=== PATIENT | male | born 1935 | race African-American/Black ===

== ENCOUNTER 2016-03-01 14:14 | Emergency (ER) | payer OTHER, MEDICARE ==
[~2016-03-01] VITALS: Ht 165.1 cm; Wt 65.8 kg
[~2016-03-01 14:14] MED LIST: ALBUTEROL 3 ML3 ML INH; CALCIUM CARBONATE PO; HYDRALAZINE100 MG PO; LOSARTAN POTAS100 MG PO; NEPHROCAPS1 TAB PO; PARICALCITOL IV; PREDNISONE10 MG PO; VENTOLIN H0.09 MG/Ac IH
[2016-03-01 14:22] VITALS: BP 193/90
--- NOTE | 2016-03-01 14:42 | ED DYSPNEA/ASTHMA COMPLAINT ---
History of Present Illness General Chief Complaint: Wheezing/Asthma Stated Complaint: ASTHMA ATTACK Source: patient, family Exam Limitations: no limitations Reconcile Medications Azithromycin 250 MG TABLET 1 TAB PO DAILY LUNGS Azithromycin 250 MG TABLET 1 DP PO DAILY LUNGS RECEIVED 500MG(DAY 1) IN THE ED Hydralazine Hydrochloride (Hydralazine) 100 MG TAB 1 TAB PO TID HTN (Reported ) Losartan Potassium 100 MG TABLET 1 TAB PO DAILY HTN (Reported) Nephro-Vitamins (Nephro-Brittany Tablet) 0.8 MG TABLET 1 TAB PO DAILY SUPPLEMENT (Reported) Prednisone 10 MG TABLET 4 TAB PO DAILY ASTHMA/BRONCHITIS Prednisone 10 MG TABLET 4 TAB PO DAILY ASTHMA/BRONCHITIS Triage Note: RECEIVED 80 YO MALE WITH HX OF ASTHMA C/O WHEEZING AND DIFFICULTY BREATHING, STARTED LAST NIGHT. INSP AND EXP WHEEZES ALL CURRAN. O2 SATS 93% USES MED NEB MACHINE AT HOME WITH NO IMPROVEMENT. MOIST COUGH. Triage Nurses Notes Reviewed? yes HPI: Patient is a 80-year-old male presents complaining of wheezing and dyspnea. Wheezing and dyspnea onset yesterday. Patient reports he began with head congestion approximately 2-3 days ago and then wheezing dyspnea onset yesterday. Cough with clear sputum production. Patient used his nebulizer machine without improvement. Symptoms are currently moderate. Patient denies chest pain, fevers, chills. (STANTON WARNER,LUPILLO) Vital Signs & Intake/Output Vital Signs & Intake/Output Vital Signs Date Time Temp Pulse Resp B/P Pulse O2 O2 Flow FiO2 Ox Delivery Rate 03/01 1604 96 03/01 1454 98 03/01 1422 99.1 88 22 193/90 93 Room Air Allergies Coded Allergies: ROBSON Inhibitors (SWELLING 03/01/16) shellfish derived (SWELLING 03/01/16) strawberry (SWELLING 03/01/16) (GRANT DYE,TIERRA Goodwin) Past History Travel History Traveled to [place] past 21 day No Medical History Any Pertinent Medical History? 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 No (LUPILLO RAMOS) Review of Systems Review of Systems Constitutional: Denies: chills, fever. EENTM: Reports: nasal congestion. Respiratory: Reports: cough, short of breath, sputum production, wheezing. Cardiovascular: Denies: chest pain. GI: Denies: abdominal pain, nausea, vomiting. Genitourinary: Reports: no symptoms. Musculoskeletal: Reports: no symptoms. Skin: Reports: no symptoms. Neurological/Psychological: Reports: no symptoms. Denies: headache. Hematologic/Endocrine: Reports: no symptoms. Immunologic/Allergic: Reports: no symptoms. (LUPILLO RAMOS) Physical Exam Physical Exam General Appearance: alert, awake Head: atraumatic, normal appearance Eyes: Bilateral: normal appearance, PERRL, EOMI. Ears, Nose, Throat: normal pharynx, normal ENT inspection, hearing grossly normal Neck: normal inspection, supple, full range of motion Respiratory: moderate diffuse inspiratory and expiratory wheezing Cardiovascular: regular rate/rhythm Gastrointestinal: soft, non-tender Extremities: normal inspection, normal capillary refill, normal range of motion Neurologic/Psych: awake, alert, oriented x 3, normal gait, normal mood/affect Skin: warm/dry Lymphatic: no anterior cervical lisset Core Measures ACS in differential dx? No Severe Sepsis Present: No Septic Shock Present: No (LUPILLO RAMOS) Progress Differential Diagnosis: asthma, bronchitis, COPD, pneumonia Diagnostic Imaging: Viewed by Me: Radiology Read. Discussed w/RAD: Radiology Read. CXR Impression: PATIENT: LUCY WEAVER PRESENT AGE: 80 PATIENT ACCOUNT NO: [id number] : 37 LOCATION: [facility] ORDERING PHYSICIAN: LUPILLO WARNER SERVICE DATE: 03/01/160119 EXAM TYPE: RAD - XRY-CHEST XRAY, PA AND LATERAL EXAMINATION: XR CHEST CLINICAL INFORMATION: Cough and dyspnea COMPARISON: 06/04/2015 chest x-ray TECHNIQUE: PA and lateral views of the chest were obtained. FINDINGS: Normal cardiomediastinal silhouette and pulmonary vascularity. Atherosclerotic calcifications of aortic arch seen. There is increased interstitial markings in the right infrahilar lung, can represent pneumonia. No pleural effusions or pneumothorax. IMPRESSION: Increased right infrahilar interstitial markings, can represent right lower lobe pneumonia. Clinical correlation is suggested. DICTATED BY: SAMSON ROCK MD DATE/TIME DICTATED:03/01/161516 AUTOMOBILE PARTS ASSEMBLER:TONA DATE/TIME TRANSCRIBED:1516 CONFIDENTIAL, DO NOT COPY WITHOUT APPROPRIATE AUTHORIZATION. < Electronically signed in Other Vendor System> SIGNED BY: SAMSON ROCK MD 03/01/16 1523 Initial ED EKG: none (LUPILLO RAMOS) Plan of Care: Current Medications Sig/Jerilyn Start time Last Medication Dose Stop Time Status Admin Azithromycin 500 MG ONCE ONE 03/01 1630 AC (Zithromax) 03/01 163 Discussed with and seen by Dr. Rivera 1545: Patient reports feeling moderate improvement after nebulizer treatment. Lungs re-examined, continues with moderate diffuse wheezing. Additional nebulizer treatment ordered. Patient afebrile, nontoxic appearing, suspect asthma/COPD rather than pneumonia. This was discussed with the patient and his family. Patient has dialysis tomorrow, where he will be monitored by medical staff. Will start patient on corticosteroids and antibiotics, have him follow up tomorrow with dialysis and return to the ER if any worsening. 1620: Patient reports improvement after second nebulizer treatment. Patient nontoxic appearing, appears stable for discharge. (LUPILLO RAMOS) Departure Departure Time of Disposition: 1622 Disposition: HOME OR SELF CARE Condition: Stable Clinical Impression Primary Impression: Bronchitis Secondary Impressions: Asthma exacerbation Referrals: DEBRA DYE,CHIKI Johnson (PCP/Family) Additional Instructions: Follow up with dialysis tomorrow as scheduled. Use your nebulizer machine every 4-6 hours. Return to the ER if breathing worsening, temperature 100.3 or higher or worsening of symptoms. Departure Forms: Customer Survey General Discharge Information Prescriptions: Current Visit Scripts Azithromycin 1 TAB PO DAILY #4 TAB Prednisone 4 TAB PO DAILY #12 TAB Azithromycin 1 DP PO DAILY #4 TAB RECEIVED 500MG(DAY 1) IN THE ED Prednisone 4 TAB PO DAILY #12 TAB (LUPILLO RAMOS) PA/FUR DRESSING SUPERVISOR Co-Sign Statement Statement: ED Attending supervision documentation- [x] I saw and evaluated the patient. I have also reviewed all the pertinent lab results and diagnostic results. I agree with the findings and the plan of care as documented in the PA's/FUR DRESSING SUPERVISOR's documentation. [] I have reviewed the ED Record and agree with the PA's/FUR DRESSING SUPERVISOR's documentation. [] Additions or exceptions (if any) to the PAs/FUR DRESSING SUPERVISOR's note and plan are summarized below: [] (GRANT DYE,TIERRA Goodwin) Critical Care Note Critical Care Note Critical Care Time: non-applicable (STANTON WARNER,LUPILLO)
--- NOTE | 2016-03-01 15:23 | RADIOLOGY REPORT ---
EXAMINATION: XR CHEST CLINICAL INFORMATION: Cough and dyspnea COMPARISON: 06/04/2015 chest x-ray TECHNIQUE: PA and lateral views of the chest were obtained. FINDINGS: Normal cardiomediastinal silhouette and pulmonary vascularity. Atherosclerotic calcifications of aortic arch seen. There is increased interstitial markings in the right infrahilar lung, can represent pneumonia. No pleural effusions or pneumothorax. IMPRESSION: Increased right infrahilar interstitial markings, can represent right lower lobe pneumonia. Clinical correlation is suggested.
[2016-03-01] MEDS ORDERED: AZITHROMYCIN250 M1 PO ×2 (16:23→16:57)
[2016-03-01] MEDS ORDERED: PREDNISONE10 M2 PO ×2 (16:23→16:57)
== END 2016-03-01 16:58 ==
LOC: ERH 14:14
DX: J45.901 Unspecified asthma with (acute) exacerbation (principal)
CPT/HCPCS: 1263

== ENCOUNTER → 2016-05-19 | Day surgery (SDC) | payer OTHER, MEDICARE ==
[~2016-05-19] MED LIST changes: +AZITHROMYCIN250 M1 PO; +PREDNISONE10 M2 PO
--- NOTE | 2016-05-19 15:16 | Operative Report ---
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 He was consented for cataract extraction and trabeculectomy of the left eye with mitomycin-C. Mitomycin was used in this case because the 2 procedures were being done concurrently. The patient was brought to the operating room and standard monitoring equipment was attached. The patient was prepped and draped in the usual fashion for sterile intraocular surgery. A lid speculum was used to retract the lids. The case was begun by making 2 partial-thickness corneal relaxing incisions at 177]. A small temporal incision was made with an I- knife and non-preserved lidocaine was introduced into the anterior chamber to provide anesthesia. The patient was asked to look down. Conjunctiva and Tenon's tissue was opened at the 12 o'clock position using non-toothed forceps and a Vannas scissors. A fornix based conjunctival peritomy was continued using Kvng's scissors. Additional anesthesia was achieved by infusing a 50:50 mixture of 2 percent lidocaine and 0.75 Marcaine which had been mixed previously underneath the conjunctiva and tenon's tissue. The sclera at the limbus was cleaned off using a 69 blade and a Weck-Nneka sponge. A partial thickness groove was made tangential to the limbus approximately 1.5 mm back using the same 69 blade. A crescent knife was used to tunnel from this incision into clear cornea and then the anterior chamber was entered with a 2.4 mm keratome. The anterior chamber was then filled and deepened with viscoelastic. A curvilinear capsulorrhexis was achieved using a 30-gauge needle and is a cystotome and capsulorrhexis was finished using a Utrata forceps. The lens was then hydrodissected with balanced salt solution and found to be rotatable. The lens was emulsified using phacoemulsification and a modified four-quadrant cracking technique. The residual cortical material was removed using automated irrigation and aspiration and as much of the anterior capsular rim was cleaned as well as possible. The posterior capsule was cleaned first with the automated machine on a low setting and then manually with a Paul squeegee. The capsular bag was deepened with viscoelastic. The lens a Technis 1 18.0 diopter placed into the bag under direct visualization and rotated so that the haptics were at 12 and 6:00. Viscoelastic was then removed from the eye by flushing it out and then by automated irrigation and aspiration. The eye was pressurized to a normal tone. 1/10 of a cc of vancomycin solution was introduced into the anterior chamber to provide antibiotic prophylaxis. Several punches of the posterior wound lip were taken with a Angely Descemet punch. A Hernandez forceps was used to grasp the iris and a peripheral iridectomy was fashioned using the Martha scissors. The trabeculectomy flap was sutured using 2 interrupted 10-0 nylon sutures whose knots were trimmed and buried. The flap was assessed for flow but no additional sutures were placed. Mitomycin-C 0.4 mg/mL was placed on several previously cut Weck-Nneka sponges and held underneath the tenons fascia for approximately 90 seconds keeping the edge of the conjunctival surface away from the mitomycin. The instruments used to handle the mitomycin were removed from the field and the area copiously irrigated with balanced salt solution. The conjunctiva was reapproximated to the eye wall using 5 interrupted 10-0 nylon sutures whose knots were trimmed and rotated underneath the tissue. The eye was pressurized to an adequate tone by introducing balanced salt solution into the anterior chamber. This caused the bleb to elevate. The bleb area was assessed for leaks and since there were none the the lid speculum was removed. The eye was patched over antibiotic, steroid and a combination of antibiotic and steroid ointment. The eye was then shielded. Patient was removed from the operating room in stable condition and brought to same-day surgery having tolerated the procedure well.
== END ==
LOC: STS 03:54
DX: H40.89 Other specified glaucoma (principal); H25.12 Age-related nuclear cataract, left eye; J45.909 Unspecified asthma, uncomplicated; I12.0 Hypertensive chronic kidney disease with stage 5 chronic kidney disease or end stage renal disease; N18.6 End stage renal disease; Z99.2 Dependence on renal dialysis; Z87.891 Personal history of nicotine dependence
CPT/HCPCS: J2001; J2250; V2632